=== PATIENT | male | born 1980 | race African-American/Black ===

== ENCOUNTER 2022-07-16 04:55 | Emergency (ER) | payer OTHER ==
[~2022-07-16] VITALS: Ht 188 cm; Wt 125.0 kg
[2022-07-16 05:54] VITALS: BP 156/90
== END 2022-07-16 06:03 ==
LOC: ER 04:56
DX: F17.200 Nicotine dependence, unspecified, uncomplicated
CPT/HCPCS: 99283

== ENCOUNTER 2023-04-20 01:41 | Emergency (ER) | payer OTHER ==
[~2023-04-20] VITALS: Ht 188 cm; Wt 134.1 kg
[2023-04-20 02:15] VITALS: BP 166/108
[2023-04-20 03:26] LABS: CLARITY,URINE SLIGHTLY CLOUDY (Clear); GLUCOSE, URINE NEGATIVE (Neg); KETONES,URINE NEGATIVE (Neg); LEUKOCYTE ESTERASE ,URINE TRACE (Neg); NITRITES, URINE NEGATIVE (Neg); OCCULT BLOOD,URINE LARGE (Neg); PROTEIN,URINE NEGATIVE (Neg); UROBILINOGEN,URINE 0.2 E.U/dL (0.2-1.0)
[2023-04-20 03:31] LABS: COLOR,URINE RED (Yellow); UA COLLECTION TYPE CLN CATCH MIDSTREAM
[2023-04-20 03:34] LABS: BACTERIA,URINE FEW /HPF (Neg); RBC,URINE TNTC /HPF (0-2); SQUAMOUS EPITHELIAL CELL,UR FEW /LPF (FEW)
[2023-04-20 03:35] LABS: WBC,URINE 0-4 /HPF (0-4)
[2023-04-20] MEDS ORDERED: SULF1TAB45 PO (03:38)
[2023-04-20] MEDS ORDERED: sulfamethoxazole/trimethoprim DS (800/160mg) tablet PO ONE (03:45)
== END 2023-04-20 03:59 | disposition home or self-care (01) ==
LOC: ER 01:41
DX: N39.0 Urinary tract infection, site not specified (principal); R31.9 Hematuria, unspecified
CPT/HCPCS: 74176; 81001; 87088; 99284